=== PATIENT | male | born 1975 | race Caucasian/White ===

== ENCOUNTER 2022-10-31 22:43 | Emergency (ER) | payer BC | END 2022-10-31 23:39 | disposition home or self-care (01) | LOC: FB.ED 22:43 | DX: H16.133 Photokeratitis, bilateral (principal); Z88.0 Allergy status to penicillin | CPT/HCPCS: 99283 ==

== ENCOUNTER 2024-02-24 11:51 | Emergency (ER) | payer BC ==
[2024-02-24] MEDS: Aspirin 81 MG Tab.Chew PO ONE (12:22)
[2024-02-24 12:27] LABS: BASOPHILS ABSOLUTE AUTO 0.1 x10-3/uL (0.0-0.3); BASOPHILS PERCENT AUTO 1.2 % (0.3-3.8); EOSINOPHILS ABSOLUTE AUTO 0.1 x10-3/uL (0.0-0.6); EOSINOPHILS PERCENT AUTO 1.8 % (0.1-6.8); HEMATOCRIT 42.5 % (38.3-50.1); HEMOGLOBIN 14.6 g/dL (12.9-17.7); LYMPHOCYTES ABSOLUTE AUTO 2.5 x10-3/uL (0.5-4.5); LYMPHOCYTES PERCENT AUTO 34.9 % (15.8-45.3); MEAN CORPUSCULAR HEMOGLOBIN 31.1 pg (27.0-33.3); MEAN CORPUSCULAR HGB CONC 34.4 g/dL (28.7-35.3); MEAN CORPUSCULAR VOLUME 90.4 fL (80.8-98.7); MEAN PLATELET VOLUME 7.5 fL (6.7-11.0); MONOCYTES ABSOLUTE AUTO 0.6 x10-3/uL (0.0-1.2); MONOCYTES PERCENT AUTO 8.8 % (5.5-15.2); NEUTROPHILS ABSOLUTE AUTO 3.9 x10-3/uL (1.7-6.9); NEUTROPHILS PERCENT AUTO 53.3 % (40.3-71.8); PLATELET COUNT,PLT 297 x10(3)uL (117-477); RED CELL DISTRIBUTION WIDTH 12.6 % (12.4-15.0); WHITE BLOOD CELL COUNT,WBC 7.3 x10-3/uL (3.2-10.1)
[2024-02-24 12:28] LABS: BLOOD UREA NITROGEN,BUN 10 mg/dL (7-18); BUN/CREATININE RATIO 9.1 (9-20); CALCIUM 9.4 mg/dL (8.6-10.2); CARBON DIOXIDE,CO2 29 mmol/L (21-32); CHLORIDE,CL 103 mmol/L (100-110); CREATININE 1.1 mg/dL (0.70-1.30); ESTIMATED GFR 82 mL/min (>60); GLUCOSE RANDOM 96 mg/dL (80-116); POTASSIUM,K 4.4 mmol/L (3.5-5.3); SODIUM,NA 141 mmol/L (135-145)
[2024-02-24 12:34] LABS: A/G RATIO 1.2; ALANINE AMINOTRANSFERASE,ALT 57 U/L (12-36); ALBUMIN 4.4 g/dL (3.5-5.2); ALKALINE PHOSPHATASE 72 IU/L (56-112); ASPARTATE AMNIOTRANSFERASE,AST 20 IU/L (5-25); BILIRUBIN TOTAL 0.6 mg/dL (0.1-1.3)
== END 2024-02-24 14:31 | disposition home or self-care (01) ==
LOC: FB.ED 11:51
DX: R07.89 Other chest pain (principal); I10 Essential (primary) hypertension; Z88.0 Allergy status to penicillin
CPT/HCPCS: 36415; 71045; 80053; 84484; 85025; 93005; 99285; A9270; 93010; 99283